=== PATIENT | male | born 1995 | race Caucasian/White ===

== ENCOUNTER 2020-06-28 22:13 | Emergency (ER) | payer BC ==
[~2020-06-28] VITALS: Ht 170.2 cm; Wt 107.2 kg
--- NOTE | 2020-06-28 22:30 | NUR ---
PATIENT HAS INCREASED HR AND STATES "I DONT LIKE HOSPITALS". PA AND RN TO BEDSIDE. PATIENT NOT SOB AND HAS NO C/O SUCH. UNABLE TO VIEW POUCH WITH TONGUE DEPRESSOR AND LIGHT. PATIENT GIVEN 2 SODAS TO ATTEMPT MOVEMENT OF POUCH. WILL CONTINUE TO MONITOR
--- NOTE | 2020-06-28 22:58 | NUR ---
PATIENT PROVIODED 2 MORE CANS OF SODA. PATIENT REPORTS HE CAN FEEL THAT THE POUCH HAS MOVED SOME. IN NAD. WILL CONTINUE TO MONITOR.
[2020-06-28 23:20] VITALS: BP_DIAS 100
--- NOTE | 2020-06-28 23:30 | NUR ---
discharge instructions reviewed with patient. no questions at that time. s/o at bedside. all personal belongings with patient.
[2020-06-28 23:45] VITALS: BP_SYST 142
== END 2020-06-28 23:47 | disposition home or self-care (01) ==
LOC: ED 23:35
DX: T18.198A Other foreign object in esophagus causing other injury, initial encounter (principal); F17.200 Nicotine dependence, unspecified, uncomplicated; X58.XXXA Exposure to other specified factors, initial encounter; Y93.89 Activity, other specified; Y92.89 Other specified places as the place of occurrence of the external cause; Y99.8 Other external cause status
CPT/HCPCS: 99281